=== PATIENT | female | born 1940 | race Caucasian/White ===

== ENCOUNTER 2019-01-22 18:41 | Emergency (ER) | payer MEDICARE, SELFPAY ==
[2019-01-22 18:56] VITALS: BP 135/64; PULSE 88; RESP 22; TEMP 36.7; O2SAT 98
--- NOTE | 2019-01-22 19:12 | ED_ITS ---
HPI - Recheck/Abnormal Lab/Rx General Chief Complaint: Recheck/Abnormal Lab/Rx Stated Complaint: D DIMER ELEVATED Time Seen by Provider: 01/22/19 18:48 Source: patient Mode of arrival: Ambulatory History of Present Illness HPI narrative: Patient is a 78-year-old female with medical history of diabetes presenting with ongoing cough since 12/20/2018 when she got back from [place]. She says that she has been on 2 rounds of antibiotics both times they were is a from ice in. She says that her cough has gotten better but she continues to xiao ve chest achiness. She went to a massage therapist to massage her chest is her muscles were tight from coughing which she said helped a lot however she still has some chest heaviness. Nonradiating she does get short of breath when she walks more than usual. His no fevers or sweats she initially had quite productive sputum but that has now improved. She had an out patient D-dimer that apparently was 650 and the cut off is 450. She had no prior workup of EKG or cardiac she says she only had a chest x-ray. MD complaint: abnormal lab Review of Systems Review of Systems ROS Unobtainable: All systems reviewed & are unremarkable except as noted in HPI and below Constitutional Constitutional: Denies chills, Denies fever(s), Denies lethargy and Denies weakness Eyes Eyes: Denies change in vision, Denies eye discharge, Denies irritation and Denies loss of vision ENT Ears, Nose, Mouth, and Throat: Denies change in voice, Denies neck pain and Denies sore throat Cardiovascular Cardiovascular: Reports chest pain, Denies chest pain at rest, Denies chest pain with activity, Denies leg edema, Denies lightheadedness, Reports dyspnea on exertion and Denies orthopnea Respiratory Respiratory: Reports as per HPI, Reports chest congestion, Reports cough, Denies hemoptysis, Denies pain on inspiration, Reports pain with cough, Reports dyspnea on exertion and Denies wheezing Gastrointestinal Gastrointestinal: Denies abdominal pain, Denies change in bowel habits, Denies diarrhea, Denies nausea and Denies vomiting Musculoskeletal Musculoskeletal: Denies neck pain Integumentary/Breasts Skin/Breast: Denies pruritus, Denies erythema, Denies rash and Denies wounds Neurologic Neurologic: Denies loss of vision and Denies weakness Allergic/Immunologic Allergic/Immunologic: Denies wheezing Patient History Medical History Diabetes (Acute) Exam Initial Vital Signs Initial Vital Signs: Vital Signs Temperature 98.1 F 01/22/19 18:56 Pulse Rate 88 01/22/19 18:56 Respiratory Rate 22 01/22/19 18:56 Blood Pressure 135/64 01/22/19 18:56 Pulse Oximetry 98 01/22/19 18:56 GENERAL: Overweight well-appearing female and in no acute distress. HEENT: Head atraumatic,EOMI, pupils reactive, face symmetric, moist mucous membranes CARDIOVASCULAR: Regular rate and rhythm without murmurs, rubs or gallops. RESPIRATORY: Breath sounds equal bilaterally, no wheezes rales or rhonchi. ABDOMEN: Soft, nontender. Normoactive bowel sounds all 4 quadrants. No guarding or rebound. EXTREMITIES: Normal range of motion, no clubbing or edema. Neurovascularly intact NEUROLOGICAL: Alert and oriented x4.Normal gait and speech. Cranial nerves II through XII grossly intact. SKIN: Warm, dry, no laceration, no petechiae, no rashes or lesions. Course Orders Ordered: ED Orders 01/22/19 19:23 CT angio chest PE protocol Stat 01/22/19 19:36 EKG-12 Lead Stat 01/22/19 19:52 B Type Natriuretic Peptide Stat Complete Blood Count AUTO DIFF Stat Comprehensive Metabolic Panel Stat Lipase Stat Procalcitonin Stat Troponin & CK Cardiac Panel Stat Vital Signs Vital signs: Vital Signs - 8 hr 01/22/19 18:56 01/22/19 19:18 01/22/19 20:00 Temperature 98.1 F Pulse Rate 88 86 82 Respiratory Rate 22 20 15 Blood Pressure 135/64 Blood Pressure [Right Arm] 127/65 143/73 H Pulse Oximetry 98 97 98 01/22/19 20:15 01/22/19 21:00 01/22/19 22:03 Temperature 98.4 F Pulse Rate 81 79 82 Respiratory Rate 20 18 20 Blood Pressure Blood Pressure [Right Arm] 119/69 124/68 119/68 Pulse Oximetry 99 99 99 MDM - Recheck/Abnormal Lab/Rx Lab Data Attestation: I reviewed the patient's lab results. Result diagrams: 01/22/19 19:52 01/22/19 19:52 Labs: Lab Results 01/22/19 01/22/19 01/22/19 Range/Units 19:52 19:52 19:52 WBC 9.2 (4.5-11.0) X10^3/uL RBC 5.45 H (4.0-5.2) X10^6/uL Hgb 15.9 (12.0-16.0) g/dL Hct 46.6 H (36-46) % MCV 85.6 (80-100) fL MCH 29.2 (26-34) PG MCHC 34.1 (30-36) % RDW 15.0 H (11.6-14.8) % Plt Count 231 (150-400) X10^3/uL Neut % (Auto) 62.6 (50-75) % Lymph % (Auto) 26.1 (25-40) % [place] % (Auto) 7.9 (3-14) % Eos % (Auto) 2.4 (2-4) % Baso % (Auto) 1.0 (0-2) % Neut # (Auto) 5800 (5697-2300) /uL Lymph # (Auto) 2400 (7521-2361) /uL [place] # (Auto) 700 (0-900) /uL Eos # (Auto) 200 (0-450) /uL Baso # (Auto) 100 (0-100) /uL Sodium 139 (137-145) mmol/L Potassium 4.0 (3.4-5.1) mmol/L Chloride 106 (98-107) mmol/L Carbon Dioxide 27 (22-32) mmol/L BUN 18 H (7-17) mg/dL Creatinine 0.80 (0.52-1.04) mg/dL Estimated GFR > 60.0 (>60) mL/min BUN/Creatinine Ratio 22.5 H (6-22) Glucose 153 H (80-110) mg/dL Calcium 9.4 (8.4-10.2) mg/dL Total Bilirubin 0.4 (0.2-1.3) mg/dL AST 41 H (14-36) IU/L ALT 24 (<35) IU/L Alkaline Phosphatase 79 (38-126) U/L Total Creatine Kinase 44 (30-135) U/L CK-MB (CK-2) TNP CK-MB (CK-2) Rel Index TNP Troponin I < 0.012 (0.01-0.034) ng/mL B-Natriuretic Peptide < 100 (<100) Total Protein 7.3 (6.3-8.2) g/dL Albumin 4.0 (3.5-5.0) g/dL Globulin 3.3 (1.7-4.1) g/dL Albumin/Globulin Ratio 1.2 (1.0-2.8) Lipase 114 (23-300) U/L Procalcitonin < 0.05 (<0.5) ng/mL Imaging Data CT scan - chest: Radiologist's impression: PROCEDURE: CT ANGIO CHEST PE PROTOCOL INDICATIONS: cough sob elevatee dimer TECHNIQUE: After the administration of intravenous contrast, 2 mm thick sections acquired from the pulmonary apices to the posterior costophrenic angles. 3-dimensional maximum intensity projection (MIP) coronal and sagittal reformats were then acquired through the thorax. For radiation dose reduction, the following was used: automated exposure control, adjustment of mA and/or kV according to patient size. COMPARISON: None. FINDINGS: Image quality: Suboptimal due to delayed scan timing versus contrast bolus. Pulmonary arteries: Pulmonary arteries are normal in size, and demonstrate mildly heterogeneous opacification do to suboptimal bolus timing. No large central pulmonary emboli. Lungs and pleura: Mild posterior medial lower lobe interstitial thickening. Scattered bilateral posterior lower lung ground glass opacities without dense consolidation. No nodules or masses. No pleural effusions or pneumothorax. Mild bilateral lower lobe peribronchial thickening. Airways are otherwise patent. Mediastinum: Heart size is normal, without pericardial effusion. No mediastinal or hilar adenopathy. Thoracic aorta is normal in caliber and enhancement. Esophagus is normal in caliber, with a small hiatal hernia. Bones and chest wall: No suspicious bony lesions. Ribs and thoracic spine appear intact throughout. Thyroid gland is normal. No axillary or supraclavicular adeno handy. Abdomen: Visualized upper abdominal solid organs appear normal in the early arterial phase of enhancement. IMPRESSION: 1. Suboptimal timing for opacification of the pulmonary arterial tree. Given this, no large central pulmonary bladder evident. 2. Mild bilateral lower lobe peribronchial thickening and interlobular septal thickening. This raises the possibility of bronchitis. Scattered minor posterior groundglass opacities are somewhat indeterminate and may reflect mild alveolitis. 3. Small hiatal hernia. Dictated by: Shreya Gramajo M.D. on 01/22/2019 at 21:41 ECG Data Attestation: I personally reviewed and interpreted this ECG as follows: Prior ECG tracings: not available for review Interpretation: Normal sinus rhythm rate 80 p.r. interval 181 QRS [address] elevations or depressions inversions MDM Narrative Medical decision making narrative: The patient had an elevated D-dimer as an outpatient. She does have shortness of breath with recent travel. It does sound as though active cough her symptoms have improved after 2 rounds of azithromycin. She does not appear septic she still has some mild chest discomfort. CT for pulmonary embolism is negative her troponin is negative. This is likely does ongoing bronchitis at this time. Discharge Plan Departure Patient Disposition: Home Clinical Impression: Chronic bronchitis Qualifiers: Chronic bronchitis type: simple Qualified Code(s): J41.0 - Simple chronic bronchitis Discharge Date/Time: 01/22/19 22:04 Instructions: Chronic Bronchitis Activity Restrictions/Additional Instructions: *You have been diagnosed with chronic bronchitis *What to do: Of blood work EKG and CT scan of chest do not show any abnormality including blood clot in your lung. At this time no need for any further antibiotics. No pneumonia is found. *Continue to take medications as directed *Follow up with your primary care provider in 2-3 days *Return to ER if you should have increasing shortness of breath chest pain, heart palpitations or any new, worsening or concerning symptoms Referrals: [facility] [Outside]
[2019-01-22 19:18] VITALS: BP 127/65; PULSE 86; RESP 20; O2SAT 97
--- NOTE | 2019-01-22 19:23 | DI.CT.S_ITS ---
PROCEDURE: CT ANGIO CHEST PE PROTOCOL INDICATIONS: cough sob elevatee dimer TECHNIQUE: After the administration of intravenous contrast, 2 mm thick sections acquired from the pulmonary apices to the posterior costophrenic angles. 3-dimensional maximum intensity projection (MIP) coronal and sagittal reformats were then acquired through the thorax. For radiation dose reduction, the following was used: automated exposure control, adjustment of mA and/or kV according to patient size. COMPARISON: None. FINDINGS: Image quality: Suboptimal due to delayed scan timing versus contrast bolus. Pulmonary arteries: Pulmonary arteries are normal in size, and demonstrate mildly heterogeneous opacification do to suboptimal bolus timing. No large central pulmonary emboli. Lungs and pleura: Mild posterior medial lower lobe interstitial thickening. Scattered bilateral posterior lower lung ground glass opacities without dense consolidation. No nodules or masses. No pleural effusions or pneumothorax. Mild bilateral lower lobe peribronchial thickening. Airways are otherwise patent. Mediastinum: Heart size is normal, without pericardial effusion. No mediastinal or hilar adenopathy. Thoracic aorta is normal in caliber and enhancement. Esophagus is normal in caliber, with a small hiatal hernia. Bones and chest wall: No suspicious bony lesions. Ribs and thoracic spine appear intact throughout. Thyroid gland is normal. No axillary or supraclavicular adenopathy. Abdomen: Visualized upper abdominal solid organs appear normal in the early arterial phase of enhancement. IMPRESSION: 1. Suboptimal timing for opacification of the pulmonary arterial tree. Given this, no large central pulmonary bladder evident. 2. Mild bilateral lower lobe peribronchial thickening and interlobular septal thickening. This raises the possibility of bronchitis. Scattered minor posterior groundglass opacities are somewhat indeterminate and may reflect mild alveolitis. 3. Small hiatal hernia. Dictated by: Shreya Gramajo M.D. on 01/22/2019 at 21:41 Approved by: Shreya Gramajo M.D. on 01/22/2019 at 21:48
[2019-01-22 20:00] VITALS: BP 143/73; PULSE 82; RESP 15; O2SAT 98
[2019-01-22 20:03] LABS: Add Manual Diff / Slide Review NO; Basophils Absolute Auto 100 /uL (0-100); Eosinophils Absolute Auto 200 /uL (0-450); Eosinophils Percent Auto 2.4 % (2-4); Hematocrit 46.6 % (36-46); Hemoglobin 15.9 g/dL (12.0-16.0); Lymphocytes Absolute Auto 2400 /uL (1100-4500); Lymphocytes Percent Auto 26.1 % (25-40); Mean Corpuscular HGB Conc 34.1 % (30-36); Mean Corpuscular Hemoglobin 29.2 PG (26-34); Mean Corpuscular Volume 85.6 fL (80-100); Monocytes Absolute Auto 700 /uL (0-900); Monocytes Percent Auto 7.9 % (3-14); Neutrophils Absolute Auto 5800 /uL (1500-7000); Neutrophils Percent Auto 62.6 % (50-75); Platelet Count 231 X10^3/uL (150-400); Red Blood Cell Count 5.45 X10^6/uL (4.0-5.2); White Blood Cell Count 9.2 X10^3/uL (4.5-11.0)
[2019-01-22 20:15] VITALS: BP 119/69; PULSE 81; RESP 20; O2SAT 99
[2019-01-22 20:31] LABS: B Type Natriuretic Peptide < 100 (<100)
[2019-01-22 20:50] LABS: Alanine Aminotransferase 24 IU/L (<35); Albumin Globulin Ratio 1.2 (1.0-2.8); Alkaline Phosphatase 79 U/L (38-126); Aspartate Aminotransferase 41 IU/L (14-36); BUN Creatinine Ratio 22.5 (6-22); Bilirubin Total 0.4 mg/dL (0.2-1.3); Blood Urea Nitrogen 18 mg/dL (7-17); Calcium 9.4 mg/dL (8.4-10.2); Carbon Dioxide 27 mmol/L (22-32); Chloride 106 mmol/L (98-107); Creatine Kinase 44 U/L (30-135); Estimated Glomerular Filt Rate > 60.0 mL/min (>60); Globulin 3.3 g/dL (1.7-4.1); Glucose 153 mg/dL (80-110); HEMOLYSIS 27 (0-50); Lipase 114 U/L (23-300); Sodium 139 mmol/L (137-145); Total Protein 7.3 g/dL (6.3-8.2)
[2019-01-22 20:52] LABS: Procalcitonin < 0.05 ng/mL (<0.5)
[2019-01-22 21:00] VITALS: BP 124/68; PULSE 79; RESP 18; O2SAT 99
[2019-01-22 21:02] LABS: Troponin I < 0.012 ng/mL (0.01-0.034)
[2019-01-22 22:03] VITALS: BP 119/68; PULSE 82; RESP 20; TEMP 36.9; O2SAT 99
== END 2019-01-22 22:04 | disposition home or self-care (01) ==
PROVIDERS: Emergency Provider Emergency Medicine
DX: J41.0 Simple chronic bronchitis (principal)
CPT/HCPCS: 36415; 71275; 80053; 82550; 83690; 83880; 84145; 84484; 85025; 93005; 99283; 99285; Q9967

== ENCOUNTER → 2020-05-03 10:57 | Outpatient (CLI) | payer MEDICARE, SELFPAY ==
[2020-05-03 13:00] LABS: COVID19 -Nasal RAPID Negative (Negative)
--- NOTE | 2020-05-12 11:45 | PM.TREADMILL ---
Cardiac Stress Test Report Referral & Results Date Patient Seen: 05/12/20 Time Patient Seen: 11:46 Indication: chest pain Rest ECG: sinus rhythm Procedure Note: After Lexiscan injection had minimal dyspnea, no chest pain No significant ST changes after Lexiscan injection No ectopy Impression: Normal Lexiscan stress test Please note: Actual ECG tracings can be found in the PACS system.
== END ==
PROVIDERS: Visit Provider Physician Assistant
DX: Z01.812 Encounter for preprocedural laboratory examination (principal); Z20.822 Contact with and (suspected) exposure to COVID-19
CPT/HCPCS: 87635; C9803

== ENCOUNTER → 2020-05-05 09:00 | Outpatient (CLI) | payer MEDICARE, SELFPAY ==
--- NOTE | 2020-05-05 | DI.NM.S_ITS ---
PROCEDURE: NM FAVIAN PERF SPECT R&S PHARM Rest and pharmacological stress myocardial perfusion SPECT with gated imaging and ejection fraction RADIOPHARMACEUTICAL: 21.0 mCi Tc-99m tetrafosmin IV at rest and 26.0 mCi Tc-99m tetrafosmin IV at peak effect of pharmacological stress. [id number] was performed. INDICATIONS: OTHER CHEST PAIN TECHNIQUE: Radiopharmaceutical was injected at peak stress test, and also at rest. SPECT images were obtained. SPECT myocardial perfusion images were displayed in short axis, horizontal long axis, and vertical long axis views. Gated images were reviewed using [employer] software. COMPARISON: None. CARDIAC STRESS: A pharmacologic stress test was performed under the supervision of an attending staff, using an infusion of lexiscan 0.4mg IV X1. Hemodynamic data: There is normal blood pressure and heart rate response to pharmacologic stress. Symptoms: The patient denied anginal chest pain. Aminophylline: none EKG: No diagnostic changes of ischemia; no ectopy. FINDINGS: Raw data: There is good myocardial uptake of radiotracer. No significant motion artifacts. Left ventricle function: Gated images demonstrate normal left ventricular wall thickening. No segmental wall motion abnormalities. No transient ischemic dilation; TID is 0.97 (normal less than 1.3). Left ventricle resting end diastolic volume is 78 mL. Left ventricle stress ejection fraction is 95%; normal range is above 45%. Myocardial perfusion: There is normal distribution of activity in the right and left ventricular myocardium. No fixed or reversible perfusion defects. IMPRESSION: Low risk, normal pharmaceutical nuclear stress test. 1) No perfusion evidence of ischemia or infarction. 2) Normal left ventricular size, wall motion, and systolic function (EF post stress 95%). 3) No ECG evidence of ischemia. 4) No angina during the study. 5) No prior nuclear stress test available for comparison. Dictated by: Jorge L López MD on 05/12/2020 at 17:32 Approved by: Jorge L López MD on 05/12/2020 at 17:34
== END ==
PROVIDERS: PCP Internal Medicine; Referring Provider Internal Medicine; Visit Provider Internal Medicine
DX: R07.89 Other chest pain (principal); Z53.9 Procedure and treatment not carried out, unspecified reason
CPT/HCPCS: 78452; 93017; A9502; J2785

== ENCOUNTER 2021-07-26 16:31 | Emergency (ER) | payer MEDICARE, SELFPAY ==
[2021-07-26 16:42] VITALS: BP 154/72; PULSE 106; RESP 28; TEMP 38; O2SAT 96; BMI 48.6
--- NOTE | 2021-07-26 16:53 | DI.RAD.S_ITS ---
PROCEDURE: XR CHEST 2V INDICATIONS: shortness of breath TECHNIQUE: 2 views of the chest were acquired. COMPARISON: None. FINDINGS: Surgical changes and devices: None. Lungs and pleura: Lungs are clear. No pleural effusions or pneumothorax. Mediastinum: Mediastinal contours are normal. Heart size is normal. Bones and chest wall: No suspicious bony abnormalities. Degenerative endplate spurs in the thoracic spine. Soft tissues appear unremarkable. IMPRESSION: No acute cardiopulmonary disease. Dictated by: Shreya Gramajo M.D. on 07/26/2021 at 17:23 Approved by: Shreya Gramajo M.D. on 07/26/2021 at 17:23
[2021-07-26 17:32] LABS: Add Manual Diff / Slide Review NO; Basophils Absolute Auto 0 /uL (0-100); Basophils Percent Auto 0.5 % (0-2); Eosinophils Absolute Auto 200 /uL (0-450); Eosinophils Percent Auto 1.8 % (2-4); Hematocrit 46.4 % (36-46); Lymphocytes Absolute Auto 1000 /uL (1100-4500); Lymphocytes Percent Auto 10.9 % (25-40); Mean Corpuscular HGB Conc 34.4 % (30-36); Mean Corpuscular Volume 84.2 fL (80-100); Monocytes Absolute Auto 800 /uL (0-900); Monocytes Percent Auto 8.5 % (3-14); Neutrophils Absolute Auto 7000 /uL (1500-7000); Neutrophils Percent Auto 78.3 % (50-75); Platelet Count 197 X10^3/uL (150-400); Red Blood Cell Count 5.51 X10^6/uL (4.0-5.2); White Blood Cell Count 8.9 X10^3/uL (4.5-11.0)
[2021-07-26 17:48] LABS: Alanine Aminotransferase 19 IU/L (<35); Albumin 4.1 g/dL (3.5-5.0); Albumin Globulin Ratio 1.1 (1.0-2.8); Alkaline Phosphatase 95 U/L (38-126); Aspartate Aminotransferase 25 IU/L (14-36); BUN Creatinine Ratio 20.5 (6-22); Bilirubin Total 0.8 mg/dL (0.2-1.3); Blood Urea Nitrogen 18 mg/dL (7-17); Calcium 8.6 mg/dL (8.4-10.2); Carbon Dioxide 22 mmol/L (22-32); Chloride 105 mmol/L (98-107); Estimated Glomerular Filt Rate > 60 mL/min (>60); Globulin 3.6 g/dL (1.7-4.1); Glucose 124 mg/dL (80-110); HEMOLYSIS < 15 (0-50); Lactate (Lactic Acid) 1.3 mmol/L (0.7-2.1); Potassium 4.1 mmol/L (3.4-5.1); Sodium 135 mmol/L (137-145); Total Protein 7.7 g/dL (6.3-8.2)
[2021-07-26 19:14] VITALS: O2SAT 95
[2021-07-26 19:15] VITALS: BP 164/73; PULSE 96; O2SAT 96
[2021-07-26 19:18] LABS: Adenovirus Not Detected (Not Detect); B. parapertussis Not Detected (Not Detecte); Bordetella pertussis Not Detected (Not Detecte); Chlamydophila pneumoniae Not Detected (Not Detect); Coronavirus 229E Not Detected (Not Detect); Coronavirus HKU1 Not Detected (Not Detect); Coronavirus NL 63 Not Detected (Not Detect); Coronavirus OC43 Not Detected (Not Detect); Human Metapneumovirus Not Detected (Not Detect); Human Rhinovirus/Enterovirus Not Detected (Not Detect); Influenza A Not Detected (Not Detect); Influenza B Not Detected (Not Detect); Mycoplasma pneumoniae Not Detected (Not Detect); Parainfluenza Virus 1 Not Detected (Not Detect); Parainfluenza Virus 2 Not Detected (Not Detect); Parainfluenza Virus 3 Not Detected (Not Detect); Parainfluenza Virus 4 Detected (Not Detect); Respiratory Syncytial Virus Not Detected (Not Detect); SARS- CoV-2 Not Detected (Not Detecte)
[2021-07-26 19:30] VITALS: BP 159/70; PULSE 90; O2SAT 96
--- NOTE | 2021-07-26 19:45 | ED.GENADULT ---
HPI - General Adult General Chief complaint: Upper Respiratory Symptoms Stated complaint: states infection in head abd chest Time Seen by Provider: 07/26/21 19:45 Source: patient Mode of arrival: Ambulatory History of Present Illness HPI narrative: 80-year-old woman with history of diabetes and self-reported weak immune system reports flying home from [place] about a week ago and began developing upper respiratory symptoms 5 days ago. She describes of cough, exertional dyspnea, rhinorrhea and nasal congestion. No significant fevers but she notes a temperature to 100 this morning. She has not been having nausea, vomiting, diarrhea. She has no history of significant pulmonary disease and does not use inhalers. She notes that today she feels that she is getting a bit better but is still having significant cough. She notes that 5 years ago she had similar symptoms and was given Z-Iggy and improved nicely. This morning she describes some gurgling in her stomach that was not associated with vomiting or diarrhea. Was not painful and has now resolved. She does not note headaches, acute neurologic complaints or cognitive changes. Related Data Previous Rx's Medication Instructions Recorded benzonatate 100 mg capsule 100 mg PO BID-TID PRN #20 cap 07/26/21 Allergies Allergy/AdvReac Type Severity Reaction Status Date / Time No Known Drug Allergies Allergy Verified 07/26/21 16:52 Review of Systems Review of Systems Narrative: Remainder of complete review of systems is otherwise unremarkable except for that included in the HPI. Patient History Medical History (Updated 07/26/21 @ 20:20 by Azalea Sheldon MD) Diabetes Social History Smoking Status: Never smoker Smoking Status: Never smoker alcohol intake frequency: 0-2 drinks per day Substance Use Type: does not use Exam Initial Vital Signs Initial Vital Signs: Vital Signs Temperature 100.4 F H 07/26/21 16:42 Pulse Rate 106 H 07/26/21 16:42 Respiratory Rate 28 H 07/26/21 16:42 Blood Pressure 154/72 H 07/26/21 16:42 Pulse Oximetry 96 07/26/21 16:42 General: Forceful cough but no respiratory distress able to speak in full sentences and Able to give a complete and coherent history. Well-nourished well-developed HEENT: Moist mucous membranes, normal sclera with reactive pupils, Neck: No JVD, supple Respiratory: Lungs with scattered wheeze on initial deep breathing that resolved completely. No crackles no rhonchi. Full and symmetrical air movement Cardiac: Regular rate and rhythm no murmurs no bruits Abdomen: Soft, nontender, good bowel tones, no flank pain Skin: Warm and dry, no rashes Neurologic: Grossly neurologically intact with no obvious asymmetries or abnormalities Extremities: No trauma, well perfused, no lower extremity edema Psych: Cooperative, appropriate insight and affect Course Orders Ordered: ED Orders 07/26/21 16:53 XR chest 2V Stat EKG-12 Lead Stat Measure peak expiratory flow ONCE RT Consult Eval and Treat Now 07/26/21 16:54 Respiratory Panel (Film Array) Stat 07/26/21 17:10 Complete Blood Count AUTO DIFF Stat Comprehensive Metabolic Panel Stat Lactate (Lactic Acid) Stat Vital Signs Vital signs: Vital Signs - 8 hr 07/26/21 16:42 07/26/21 19:14 07/26/21 19:15 Temperature 100.4 F H Pulse Rate 106 H 96 H Respiratory Rate 28 H Blood Pressure 154/72 H 164/73 H Pulse Oximetry 96 95 96 07/26/21 19:30 07/26/21 19:59 07/26/21 20:15 Temperature 99.4 F Pulse Rate 90 92 H Respiratory Rate Blood Pressure 159/70 H 140/60 Pulse Oximetry 96 97 Medical Decision Making Lab Data Result diagrams: 07/26/21 17:10 07/26/21 17:10 Labs: Lab Results 07/26/21 07/26/21 07/26/21 Range/Units 16:54 17:10 17:10 WBC 8.9 (4.5-11.0) X10^3/uL RBC 5.51 H (4.0-5.2) X10^6/uL Hgb 16.0 (12.0-16.0) g/dL Hct 46.4 H (36-46) % MCV 84.2 (80-100) fL MCH 29.0 (26-34) PG MCHC 34.4 (30-36) % RDW 14.0 (11.6-14.8) % Plt Count 197 (150-400) X10^3/uL Neut % (Auto) 78.3 H (50-75) % Lymph % (Auto) 10.9 L (25-40) % Bound[place] % (Auto) 8.5 (3-14) % Eos % (Auto) 1.8 L (2-4) % Baso % (Auto) 0.5 (0-2) % Neut # (Auto) 7000 (8812-2952) /uL Lymph # (Auto) 1000 L (4727-6529) /uL Boundary # (Auto) 800 (0-900) /uL Eos # (Auto) 200 (0-450) /uL Baso # (Auto) 0 (0-100) /uL Sodium 135 L (137-145) mmol/L Potassium 4.1 (3.4-5.1) mmol/L Chloride 105 (98-107) mmol/L Carbon Dioxide 22 (22-32) mmol/L BUN 18 H (7-17) mg/dL Creatinine 0.88 (0.52-1.04) mg/dL Estimated GFR > 60 (>60) mL/min BUN/Creatinine Ratio 20.5 (6-22) Glucose 124 H (80-110) mg/dL Lactate (0.7-2.1) mmol/L Calcium 8.6 (8.4-10.2) mg/dL Total Bilirubin 0.8 (0.2-1.3) mg/dL AST 25 (14-36) IU/L ALT 19 (<35) IU/L Alkaline Phosphatase 95 (38-126) U/L Total Protein 7.7 (6.3-8.2) g/dL Albumin 4.1 (3.5-5.0) g/dL Globulin 3.6 (1.7-4.1) g/dL Albumin/Globulin Ratio 1.1 (1.0-2.8) Chlamy pneumoniae PCR Not detected (Not Detect) Adenovirus (PCR) Not detected (Not Detect) B. pertussis DNA (PCR) Not detected (Not Detecte) B.parapertussis DNA PCR Not detected (Not Detecte) Coronavirus OC43 (PCR) Not detected (Not Detect) Coronavirus HKU1 (PCR) Not detected (Not Detect) Coronavirus 229E (PCR) Not detected (Not Detect) SARS-CoV-2 (PCR) Not detected (Not Detecte) Coronavirus NL63 (PCR) Not detected (Not Detect) Human Metapneumovir PCR Not detected (Not Detect) Influenza Type A (PCR) Not detected (Not Detect) Influenza Type B (PCR) Not detected (Not Detect) M. pneumoniae (PCR) Not detected (Not Detect) Parainfluenza 1 (PCR) Not detected (Not Detect) Parainfluenza 2 (PCR) Not detected (Not Detect) Parainfluenza 3 (PCR) Not detected (Not Detect) Parainfluenza 4 (PCR) Detected H (Not Detect) RSV (PCR) Not detected (Not Detect) Entero/Rhino (PCR) Not detected (Not Detect) 07/26/21 Range/Units 17:10 WBC (4.5-11.0) X10^3/uL RBC (4.0-5.2) X10^6/uL Hgb (12.0-16.0) g/dL Hct (36-46) % MCV (80-100) fL MCH (26-34) PG MCHC (30-36) % RDW (11.6-14.8) % Plt Count (150-400) X10^3/uL Neut % (Auto) (50-75) % Lymph % (Auto) (25-40) % Bound[place] % (Auto) (3-14) % Eos % (Auto) (2-4) % Baso % (Auto) (0-2) % Neut # (Auto) (6278-0750) /uL Lymph # (Auto) (5077-7132) /uL Bound[place] # (Auto) (0-900) /uL Eos # (Auto) (0-450) /uL Baso # (Auto) (0-100) /uL Sodium (137-145) mmol/L Potassium (3.4-5.1) mmol/L Chloride (98-107) mmol/L Carbon Dioxide (22-32) mmol/L BUN (7-17) mg/dL Creatinine (0.52-1.04) mg/dL Estimated GFR (>60) mL/min BUN/Creatinine Ratio (6-22) Glucose (80-110) mg/dL Lactate 1.3 (0.7-2.1) mmol/L Calcium (8.4-10.2) mg/dL Total Bilirubin (0.2-1.3) mg/dL AST (14-36) IU/L ALT (<35) IU/L Alkaline Phosphatase (38-126) U/L Total Protein (6.3-8.2) g/dL Albumin (3.5-5.0) g/dL Globulin (1.7-4.1) g/dL Albumin/Globulin Ratio (1.0-2.8) Chlamy pneumoniae PCR (Not Detect) Adenovirus (PCR) (Not Detect) B. pertussis DNA (PCR) (Not Detecte) B.parapertussis DNA PCR (Not Detecte) Coronavirus OC43 (PCR) (Not Detect) Coronavirus HKU1 (PCR) (Not Detect) Coronavirus 229E (PCR) (Not Detect) SARS-CoV-2 (PCR) (Not Detecte) Coronavirus NL63 (PCR) (Not Detect) Human Metapneumovir PCR (Not Detect) Influenza Type A (PCR) (Not Detect) Influenza Type B (PCR) (Not Detect) M. pneumoniae (PCR) (Not Detect) Parainfluenza 1 (PCR) (Not Detect) Parainfluenza 2 (PCR) (Not Detect) Parainfluenza 3 (PCR) (Not Detect) Parainfluenza 4 (PCR) (Not Detect) RSV (PCR) (Not Detect) Entero/Rhino (PCR) (Not Detect) Urine Dip Bedside Urine Glucose Negative Bedside Urine Bilirubin - Negative Bedside Urine Ketone +/- 5 Urine Specific [place] 1.030 Bedside Urine Occult Blood +/- Bedside Urine pH 6.0 Bedside Urine Protein - Negative Bedside Urine Urobilinogen - Negative Bedside Urine Nitrite - Negative Bedside Urine Leukocytes - Negative Esterase Point of care testing: Urine Dip Bedside Urine Glucose Negative Bedside Urine Bilirubin - Negative Bedside Urine Ketone +/- 5 Urine Specific [place] 1.030 Bedside Urine Occult Blood +/- Bedside Urine pH 6.0 Bedside Urine Protein - Negative Bedside Urine Urobilinogen - Negative Bedside Urine Nitrite - Negative Bedside Urine Leukocytes - Negative Esterase Imaging Data Chest x-ray: Radiologist's Impression: FINDINGS:? ? Surgical changes and devices:? None.? ? Lungs and pleura:? Lungs are clear.? No pleural effusions or pneumothorax.? ? Mediastinum:? Mediastinal contours are normal.? Heart size is normal.? ? Bones and chest wall:? No suspicious bony abnormalities. Degenerative endplate spurs in the thoracic spine. ? Soft tissues appear unremarkable.? ? IMPRESSION:? No acute cardiopulmonary disease.? ? ? Dictated by: Shreya Gramajo M.D. on 07/26/2021 at 17:23? ?? MDM Narrative Medical decision making narrative: 80-year-old woman on day 5 of upper respiratory infection with no signs or symptoms of complicating bacterial pneumonia, acute coronary syndrome, significant wheeze or COPD component, concern for pulmonary embolism is low, no pneumothorax and no signs of congestive heart failure. Chest x-ray is reassuring. Your given the fact that she is beginning to improve had and her parainfluenza virus study came back positive reassurance is given. I believe this is an upper respiratory infection related to parainfluenza without complicating bacterial super infection, no need for antibiotics or additional interventions at this time. She is given a prescription for Tessalon Perles to help control the cough. Findings and studies are reviewed with her in detail. Questions are answered. She is wondering why she does not need a Z-Iggy and we had a detailed discussion on why viral infections do not need to be treated with antibacterials. She is safe for home discharge Discharge Plan Departure Patient Disposition: Home Clinical Impression: Parainfluenza infection Instructions: DI for Viral Upper Respiratory Infection -- Adult Activity Restrictions/Additional Instructions: Thank you for coming in today You have parainfluenza virus, this can cause common upper respiratory symptoms as you are currently experiencing. The rest of your workup was very reassuring. You are not requiring any additional oxygen, your blood work is reassuring, your chest x-ray shows no bacterial pneumonia, there is no sign of a heart attack or congestive heart failure. Most viruses are going to last 7-10 days, it sounds like you are currently on day 5 and did note that you seem to be improving already. I have given you a prescription for Tessalon Perles to help so pressure cough so that you can get some sleep so that your body can continue to heal effectively. If you have worsening symptoms, fevers or new findings, please feel free to return to the emergency room Prescriptions: New benzonatate 100 mg capsule 100 mg PO BID-TID PRN (Reason: cough) Qty: 20 0RF Referrals: Robert Bautista MD [Primary Care Provider] -
[2021-07-26 19:59] VITALS: BP 140/60; PULSE 92; O2SAT 97
[2021-07-26 20:15] VITALS: TEMP 37.4
== END 2021-07-26 20:28 | disposition home or self-care (01) ==
PROVIDERS: Emergency Medicine; Emergency Provider Emergency Medicine; PCP Internal Medicine
DX: J06.9 Acute upper respiratory infection, unspecified (principal); B34.8 Other viral infections of unspecified site; Z20.822 Contact with and (suspected) exposure to COVID-19; R06.02 Shortness of breath
CPT/HCPCS: 36415; 71046; 80053; 81003; 83605; 85025; 87633; 93005; 93010; 99284

== ENCOUNTER 2021-11-13 14:08 | Emergency (ER) | payer MEDICARE, SELFPAY ==
[2021-11-13 14:25] VITALS: BP 131/61; PULSE 84; RESP 16; TEMP 36.9; O2SAT 98; BMI 28.7
--- NOTE | 2021-11-13 16:06 | ED.NAVMDI ---
HPI - Nausea/Vomiting/Diarrhea <Tobi Swanson MD - Last Filed: 11/13/21 17:42> General Chief complaint: Nausea/Vomiting/Diarrhea Stated complaint: Not urinating, Diarrhea Time Seen by Provider: 11/13/21 15:54 Source: patient Mode of arrival: Ambulatory History of Present Illness HPI Narrative: Gemma sneed is an 81-year-old woman here for concerns about ongoing gurgling stomach. Last Friday she developed vomiting and diarrhea. The diarrhea was quite troubling in as much as she was incontinent of stool multiple times at home. She was seen on November 07 last Friday at an outpatient clinic and prescribed Lomotil to help. The diarrhea has since resolved but then it started up again a couple of days ago she had an episode of vomiting and diarrhea as recently as last night. She is gone through the whole day today with no vomiting or diarrhea. She is concerned about the possibility of urinary tract infection because she feels the urge to go but only urinates a few drops. She does not have much in the way of abdominal pain. She has no fever. No chest symptoms. No flank pain. Past medical history remarkable for type 2 diabetes, chronic fatigue, esophagitis and GERD Related Data Previous Rx's Medication Instructions Recorded benzonatate 100 mg capsule 100 mg PO BID-TID PRN cough #20 07/26/21 caps Allergies Allergy/AdvReac Type Severity Reaction Status Date / Time No Known Drug Allergies Allergy Verified 11/13/21 14:32 Review of Systems <Tobi Swanson MD - Last Filed: 11/13/21 17:42> Review of Systems Narrative: Complete review of systems is negative other than as noted above. Patient History <Tobi Swanson MD - Last Filed: 11/13/21 17:42> Medical History (Updated 11/13/21 @ 20:38 by Azalea Sheldon MD) Diabetes Social History Smoking Status: Never smoker Smoking Status: Never smoker alcohol intake frequency: 0-2 drinks per day Substance Use Type: does not use Exam <Tobi Swanson MD - Last Filed: 11/13/21 17:42> Narrative Exam Narrative: GENERAL: Alert, cooperative and in no distress. HEAD: Atraumatic. Normocephalic. EYES: Sclera are clear without icterus. Extraocular movements are full. ENT: No rhinorrhea. Oropharynx is moist. Mouth exam is benign. NECK: Supple. Full range of motion. CARDIOVASCULAR: Normal rate and rhythm without murmur gallop or rub. RESPIRATORY: Clear to auscultation. Breath sounds equal bilaterally. No wheezes, rales, or rhonchi. GASTROINTESTINAL: Obese abdomen, bowel sounds are present. No tenderness to palpation. EXTREMITIES: No edema, full range of motion. No obvious trauma. BACK: Normal inspection, no CVA tenderness. NEURO: Nonfocal examination, normal speech, normal gait. SKIN: No rash or erythema of visible areas PSYCH: Normally oriented. Normal range of affect. Appropriate behavior Initial Vital Signs Initial Vital Signs: Vital Signs Temperature 98.5 F 11/13/21 14:25 Pulse Rate 84 11/13/21 14:25 Respiratory Rate 16 11/13/21 14:25 Blood Pressure 131/61 11/13/21 14:25 Pulse Oximetry 98 11/13/21 14:25 Oxygen Delivery Method 11/13/21 14:25 <Azalea Sheldon MD - Last Filed: 11/13/21 20:41> Initial Vital Signs Initial Vital Signs: Vital Signs Temperature 98.5 F 11/13/21 14:25 Pulse Rate 84 11/13/21 14:25 Respiratory Rate 16 11/13/21 14:25 Blood Pressure 131/61 11/13/21 14:25 Pulse Oximetry 98 11/13/21 14:25 Oxygen Delivery Method 11/13/21 14:25 Course <Tobi Swanson MD - Last Filed: 11/13/21 17:42> Orders Ordered: ED Orders 11/13/21 14:29 GI Panel (Film Array) Stat 11/13/21 16:09 UA dip and micro [Urinalysis and Microscopic] Stat 11/13/21 16:12 Ictotest Urine Stat Urinalysis and Microscopic Stat Urine Culture Stat 11/13/21 17:03 CBC Auto Diff [Complete Blood Count AUTO DIFF] Stat CMP [Comprehensive Metabolic Panel] Stat COVID19 -Nasal RAPID/Pre-Proc Stat Vital Signs Vital signs: Vital Signs - 8 hr 11/13/21 14:25 Temperature 98.5 F Pulse Rate 84 Respiratory Rate 16 Blood Pressure 131/61 Pulse Oximetry 98 Oxygen Delivery Method Room Air <Azalea Sheldon MD - Last Filed: 11/13/21 20:41> Orders Ordered: ED Orders 11/13/21 14:29 GI Panel (Film Array) Stat 11/13/21 16:09 UA dip and micro [Urinalysis and Microscopic] Stat 11/13/21 16:12 Ictotest Urine Stat Urinalysis and Microscopic Stat Urine Culture Stat 11/13/21 17:03 CBC Auto Diff [Complete Blood Count AUTO DIFF] Stat CMP [Comprehensive Metabolic Panel] Stat COVID19 -Nasal RAPID/Pre-Proc Stat Vital Signs Vital signs: Vital Signs - 8 hr 11/13/21 14:25 Temperature 98.5 F Pulse Rate 84 Respiratory Rate 16 Blood Pressure 131/61 Pulse Oximetry 98 Oxygen Delivery Method Room Air MDM - Nausea/Vomiting/Diarrhea <Tobi Swanson MD - Last Filed: 11/13/21 17:42> Lab Data Result diagrams: 11/13/21 17:03 11/13/21 17:03 Labs: Lab Results 11/13/21 11/13/21 11/13/21 Range/Units 16:12 17:03 17:03 WBC 9.5 (4.5-11.0) X10^3/uL RBC 5.45 H (4.0-5.2) X10^6/uL Hgb 15.7 (12.0-16.0) g/dL Hct 45.7 (36-46) % MCV 83.8 (80-100) fL MCH 28.7 (26-34) PG MCHC 34.3 (30-36) % RDW 14.9 H (11.6-14.8) % Plt Count 261 (150-400) X10^3/uL Neut % (Auto) 59.9 (50-75) % Lymph % (Auto) 26.0 (25-40) % [place] % (Auto) 7.0 (3-14) % Eos % (Auto) 7.0 H (2-4) % Baso % (Auto) 0.1 (0-2) % Neut # (Auto) 5700 (8130-5427) /uL Lymph # (Auto) 2500 (8656-6777) /uL [place] # (Auto) 700 (0-900) /uL Eos # (Auto) 700 H (0-450) /uL Baso # (Auto) 0 (0-100) /uL Sodium 143 (137-145) mmol/L Potassium 3.4 (3.4-5.1) mmol/L Chloride 107 (98-107) mmol/L Carbon Dioxide 30 (22-32) mmol/L BUN 21 H (7-17) mg/dL Creatinine 0.93 (0.52-1.04) mg/dL Estimated GFR > 60 (>60) mL/min BUN/Creatinine Ratio 22.6 H (6-22) Glucose 103 (80-110) mg/dL Calcium 8.9 (8.4-10.2) mg/dL Total Bilirubin 0.5 (0.2-1.3) mg/dL AST 22 (14-36) IU/L ALT 21 (<35) IU/L Alkaline Phosphatase 104 (38-126) U/L Total Protein 7.2 (6.3-8.2) g/dL Albumin 3.7 (3.5-5.0) g/dL Globulin 3.5 (1.7-4.1) g/dL Albumin/Globulin Ratio 1.1 (1.0-2.8) Urine Color Yellow Urine Appearance Clear Urine pH 5.0 (4.5-8.0) Ur Specific [place] 1.020 (1.000-1.035) Urine Protein Trace H (Negative) Urine Glucose (UA) Trace H (Negative) g/dL Urine Ketones Trace H (NEGATIVE) Urine Occult Blood Negative (Negative) Urine Nitrate Negative (Negative) Urine Bilirubin 1+ H (NEGATIVE) Ur Bilirubin Confirm Negative (Negative) Urine Urobilinogen 0.2 (0.2) E.U./dL Ur Leukocyte Esterase Trace H (NEGATIVE) Urine RBC None seen (0-5/HPF) Urine WBC 5-10/hpf H (0-5/HPF) Ur Squamous Epith Cells 1-5 /hpf (0-5/HPF) Urine Bacteria Moderate (10-30) H (None) Urine Mucus 2+ H (Negative) Ur Culture Indicated? Specimen cultured SARS-CoV-2 (PCR) (Negative) 11/13/21 Range/Units 17:03 WBC (4.5-11.0) X10^3/uL RBC (4.0-5.2) X10^6/uL Hgb (12.0-16.0) g/dL Hct (36-46) % MCV (80-100) fL MCH (26-34) PG MCHC (30-36) % RDW (11.6-14.8) % Plt Count (150-400) X10^3/uL Neut % (Auto) (50-75) % Lymph % (Auto) (25-40) % [place] % (Auto) (3-14) % Eos % (Auto) (2-4) % Baso % (Auto) (0-2) % Neut # (Auto) (9161-1036) /uL Lymph # (Auto) (1554-2168) /uL [place] # (Auto) (0-900) /uL Eos # (Auto) (0-450) /uL Baso # (Auto) (0-100) /uL Sodium (137-145) mmol/L Potassium (3.4-5.1) mmol/L Chloride (98-107) mmol/L Carbon Dioxide (22-32) mmol/L BUN (7-17) mg/dL Creatinine (0.52-1.04) mg/dL Estimated GFR (>60) mL/min BUN/Creatinine Ratio (6-22) Glucose (80-110) mg/dL Calcium (8.4-10.2) mg/dL Total Bilirubin (0.2-1.3) mg/dL AST (14-36) IU/L ALT (<35) IU/L Alkaline Phosphatase (38-126) U/L Total Protein (6.3-8.2) g/dL Albumin (3.5-5.0) g/dL Globulin (1.7-4.1) g/dL Albumin/Globulin Ratio (1.0-2.8) Urine Color Urine Appearance Urine pH (4.5-8.0) Ur Specific [place] (1.000-1.035) Urine Protein (Negative) Urine Glucose (UA) (Negative) g/dL Urine Ketones (NEGATIVE) Urine Occult Blood (Negative) Urine Nitrate (Negative) Urine Bilirubin (NEGATIVE) Ur Bilirubin Confirm (Negative) Urine Urobilinogen (0.2) E.U./dL Ur Leukocyte Esterase (NEGATIVE) Urine RBC (0-5/HPF) Urine WBC (0-5/HPF) Ur Squamous Epith Cells (0-5/HPF) Urine Bacteria (None) Urine Mucus (Negative) Ur Culture Indicated? SARS-CoV-2 (PCR) Negative (Negative) Point of Care Testing Glucose POC 95 Urine Dip Bedside Urine Glucose Negative Bedside Urine Bilirubin ++ 2 Bedside Urine Ketone +/- 5 Urine Specific [place] 1.030 Bedside Urine Occult Blood - Negative Bedside Urine pH 5.5 Bedside Urine Protein - Negative Bedside Urine Urobilinogen - Negative Bedside Urine Nitrite - Negative Bedside Urine Leukocytes - Negative Esterase <Azalea Sheldon MD - Last Filed: 11/13/21 20:41> Lab Data Labs: Lab Results 11/13/21 11/13/21 11/13/21 Range/Units 16:12 17:03 17:03 WBC 9.5 (4.5-11.0) X10^3/uL RBC 5.45 H (4.0-5.2) X10^6/uL Hgb 15.7 (12.0-16.0) g/dL Hct 45.7 (36-46) % MCV 83.8 (80-100) fL MCH 28.7 (26-34) PG MCHC 34.3 (30-36) % RDW 14.9 H (11.6-14.8) % Plt Count 261 (150-400) X10^3/uL Neut % (Auto) 59.9 (50-75) % Lymph % (Auto) 26.0 (25-40) % [place] % (Auto) 7.0 (3-14) % Eos % (Auto) 7.0 H (2-4) % Baso % (Auto) 0.1 (0-2) % Neut # (Auto) 5700 (9079-6536) /uL Lymph # (Auto) 2500 (8122-1421) /uL [place] # (Auto) 700 (0-900) /uL Eos # (Auto) 700 H (0-450) /uL Baso # (Auto) 0 (0-100) /uL Sodium 143 (137-145) mmol/L Potassium 3.4 (3.4-5.1) mmol/L Chloride 107 (98-107) mmol/L Carbon Dioxide 30 (22-32) mmol/L BUN 21 H (7-17) mg/dL Creatinine 0.93 (0.52-1.04) mg/dL Estimated GFR > 60 (>60) mL/min BUN/Creatinine Ratio 22.6 H (6-22) Glucose 103 (80-110) mg/dL Calcium 8.9 (8.4-10.2) mg/dL Total Bilirubin 0.5 (0.2-1.3) mg/dL AST 22 (14-36) IU/L ALT 21 (<35) IU/L Alkaline Phosphatase 104 (38-126) U/L Total Protein 7.2 (6.3-8.2) g/dL Albumin 3.7 (3.5-5.0) g/dL Globulin 3.5 (1.7-4.1) g/dL Albumin/Globulin Ratio 1.1 (1.0-2.8) Urine Color Yellow Urine Appearance Clear Urine pH 5.0 (4.5-8.0) Ur Specific [place] 1.020 (1.000-1.035) Urine Protein Trace H (Negative) Urine Glucose (UA) Trace H (Negative) g/dL Urine Ketones Trace H (NEGATIVE) Urine Occult Blood Negative (Negative) Urine Nitrate Negative (Negative) Urine Bilirubin 1+ H (NEGATIVE) Ur Bilirubin Confirm Negative (Negative) Urine Urobilinogen 0.2 (0.2) E.U./dL Ur Leukocyte Esterase Trace H (NEGATIVE) Urine RBC None seen (0-5/HPF) Urine WBC 5-10/hpf H (0-5/HPF) Ur Squamous Epith Cells 1-5 /hpf (0-5/HPF) Urine Bacteria Moderate (10-30) H (None) Urine Mucus 2+ H (Negative) Ur Culture Indicated? Specimen cultured SARS-CoV-2 (PCR) (Negative) 11/13/21 Range/Units 17:03 WBC (4.5-11.0) X10^3/uL RBC (4.0-5.2) X10^6/uL Hgb (12.0-16.0) g/dL Hct (36-46) % MCV (80-100) fL MCH (26-34) PG MCHC (30-36) % RDW (11.6-14.8) % Plt Count (150-400) X10^3/uL Neut % (Auto) (50-75) % Lymph % (Auto) (25-40) % [place] % (Auto) (3-14) % Eos % (Auto) (2-4) % Baso % (Auto) (0-2) % Neut # (Auto) (5122-5755) /uL Lymph # (Auto) (6002-3435) /uL [place] # (Auto) (0-900) /uL Eos # (Auto) (0-450) /uL Baso # (Auto) (0-100) /uL Sodium (137-145) mmol/L Potassium (3.4-5.1) mmol/L Chloride (98-107) mmol/L Carbon Dioxide (22-32) mmol/L BUN (7-17) mg/dL Creatinine (0.52-1.04) mg/dL Estimated GFR (>60) mL/min BUN/Creatinine Ratio (6-22) Glucose (80-110) mg/dL Calcium (8.4-10.2) mg/dL Total Bilirubin (0.2-1.3) mg/dL AST (14-36) IU/L ALT (<35) IU/L Alkaline Phosphatase (38-126) U/L Total Protein (6.3-8.2) g/dL Albumin (3.5-5.0) g/dL Globulin (1.7-4.1) g/dL Albumin/Globulin Ratio (1.0-2.8) Urine Color Urine Appearance Urine pH (4.5-8.0) Ur Specific [place] (1.000-1.035) Urine Protein (Negative) Urine Glucose (UA) (Negative) g/dL Urine Ketones (NEGATIVE) Urine Occult Blood (Negative) Urine Nitrate (Negative) Urine Bilirubin (NEGATIVE) Ur Bilirubin Confirm (Negative) Urine Urobilinogen (0.2) E.U./dL Ur Leukocyte Esterase (NEGATIVE) Urine RBC (0-5/HPF) Urine WBC (0-5/HPF) Ur Squamous Epith Cells (0-5/HPF) Urine Bacteria (None) Urine Mucus (Negative) Ur Culture Indicated? SARS-CoV-2 (PCR) Negative (Negative) Point of Care Testing Glucose POC 95 Urine Dip Bedside Urine Glucose Negative Bedside Urine Bilirubin ++ 2 Bedside Urine Ketone +/- 5 Urine Specific [place] 1.030 Bedside Urine Occult Blood - Negative Bedside Urine pH 5.5 Bedside Urine Protein - Negative Bedside Urine Urobilinogen - Negative Bedside Urine Nitrite - Negative Bedside Urine Leukocytes - Negative Esterase MDM Narrative Medical decision making narrative: 81-year-old woman presents with a week of intermittent vomiting and diarrhea without fever or significant pain. She describes 3 days of diarrhea that resolved with Imodium and then 2 days after the Imodium had been discontinued. It sounds like all of her symptoms have resolved today however she comes in dramatically concerned about the large bowel movements that she had earlier this week. Exam is entirely benign, lab work is benign. Her plan was to continue taking Imodium and I pointed out that she actually does seem to be healing at this point and Imodium will cause problems. Apparently she and her were more defied at the amount of stool that came out both times and I suspect that probably represents the amount of chronic constipation that she has. All of this was explained in reviewed multiple times and I suspect that there is degree of cognitive decline comparing her understanding. At this point she is entirely nontoxic and safe for home discharge Discharge Plan Departure Patient Disposition: Home Clinical Impression: Gastroenteritis Instructions: DI for Viral Gastroenteritis -- Adult Activity Restrictions/Additional Instructions: Thank you for coming in today The symptoms that your describing are all very consistent with a stomach bug that is causing the diarrhea and vomiting. The fact that you are feeling better today without using any Imodium is good. You may be coming to the and of your infection. All of your blood work was very reassuring. I would suggest adding back liquids, simple white foods that are easy to digest such as bananas, rice, applesauce, toast. Adding probiotics can also be helpful Do not take Imodium tonight. If you are not having profuse immediate watery diarrhea the Imodium is going to cause significant constipation and make everything worse If your continuing to have issues, please talk to your primary care doctor Prescriptions: No Action benzonatate 100 mg capsule 100 mg PO BID-TID PRN (Reason: cough) Qty: 20 0RF Referrals: Juanjose Rondon MD [Primary Care Provider] -
[2021-11-13 16:41] LABS: Appearance Urine UA CLEAR; Bilirubin Urine UA 1+ (NEGATIVE); Color Urine UA YELLOW; Glucose Urine UA TRACE g/dL (Negative); Ketones Urine UA TRACE (NEGATIVE); Leukocyte Esterase Urine UA TRACE (NEGATIVE); Nitrite Urine UA NEGATIVE (Negative); Occult Blood Urine UA NEGATIVE (Negative); Protein Urine UA TRACE (Negative); Urobilinogen Urine UA 0.2 E.U./dL (0.2)
[2021-11-13 17:04] LABS: RBC Urine None Seen (0-5/HPF)
[2021-11-13 17:05] LABS: Bacteria Urine Moderate (10-30); Mucus Urine 2+ (Negative)
[2021-11-13 17:07] LABS: Culture Indicated Urine Specimen Cultured; Squamous Epithelial Cell Urine 1-5 /HPF (0-5/HPF); WBC Urine 5-10/HPF (0-5/HPF)
[2021-11-13 17:08] LABS: Ictotest Urine Negative (Negative)
[2021-11-13 17:33] LABS: Add Manual Diff / Slide Review NO; Basophils Absolute Auto 0 /uL (0-100); Basophils Percent Auto 0.1 % (0-2); Eosinophils Absolute Auto 700 /uL (0-450); Hematocrit 45.7 % (36-46); Hemoglobin 15.7 g/dL (12.0-16.0); Lymphocytes Absolute Auto 2500 /uL (1100-4500); Mean Corpuscular HGB Conc 34.3 % (30-36); Mean Corpuscular Hemoglobin 28.7 PG (26-34); Mean Corpuscular Volume 83.8 fL (80-100); Monocytes Absolute Auto 700 /uL (0-900); Neutrophils Absolute Auto 5700 /uL (1500-7000); Neutrophils Percent Auto 59.9 % (50-75); Platelet Count 261 X10^3/uL (150-400); Red Blood Cell Count 5.45 X10^6/uL (4.0-5.2); Red Cell Distribution Width 14.9 % (11.6-14.8); White Blood Cell Count 9.5 X10^3/uL (4.5-11.0)
[2021-11-13 17:48] LABS: Alanine Aminotransferase 21 IU/L (<35); Albumin 3.7 g/dL (3.5-5.0); Albumin Globulin Ratio 1.1 (1.0-2.8); Alkaline Phosphatase 104 U/L (38-126); Aspartate Aminotransferase 22 IU/L (14-36); BUN Creatinine Ratio 22.6 (6-22); Bilirubin Total 0.5 mg/dL (0.2-1.3); Blood Urea Nitrogen 21 mg/dL (7-17); Calcium 8.9 mg/dL (8.4-10.2); Carbon Dioxide 30 mmol/L (22-32); Chloride 107 mmol/L (98-107); Estimated Glomerular Filt Rate > 60 mL/min (>60); Globulin 3.5 g/dL (1.7-4.1); Glucose 103 mg/dL (80-110); HEMOLYSIS < 15 (0-50); Potassium 3.4 mmol/L (3.4-5.1); Sodium 143 mmol/L (137-145); Total Protein 7.2 g/dL (6.3-8.2)
[2021-11-13 17:51] LABS: COVID19 -Nasal RAPID Negative (Negative)
== END 2021-11-13 20:45 | disposition home or self-care (01) ==
PROVIDERS: Family Medicine Addiction Medicine; Emergency Provider Emergency Medicine; PCP Family Medicine
DX: K52.9 Noninfective gastroenteritis and colitis, unspecified (principal); Z20.822 Contact with and (suspected) exposure to COVID-19
CPT/HCPCS: 36415; 80053; 81001; 81003; 85025; 87086; 87635; 99283; C9803